=== PATIENT | male | born 2000 | race Caucasian/White ===

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

== ENCOUNTER → 2021-04-19 15:26 | Outpatient (CLI) | payer OTHER, SELFPAY ==
--- NOTE | 2021-04-19 15:29 | DI.RAD.S_ITS ---
PROCEDURE: XR ANKLE RT MIN 3V INDICATIONS: Ankle Pain TECHNIQUE: 3 views of the ankle were acquired. COMPARISON: [facility], CR, XR ANKLE LT MIN 3V, 12/30/2017, 8:37. FINDINGS: Bones: Acute oblique fracture through distal fibular shaft is seen with minimal posterior displacement at fracture site. Ankle mortise is normally aligned. No suspicious bony lesions. Soft tissues: Lateral ankle soft tissue swelling is seen. No tibiotalar joint effusion. Achilles tendon appears normal. IMPRESSION: Acute minimally displaced distal fibular shaft fracture as above. Dictated by: Philip Hudson M.D. on 04/19/2021 at 15:49 Approved by: Philip Hudson M.D. on 04/19/2021 at 15:53
== END ==
PROVIDERS: PCP Pediatrics; Referring Provider Nurse Practitioner; Visit Provider Nurse Practitioner
DX: S82.831A Other fracture of upper and lower end of right fibula, initial encounter for closed fracture (principal)
CPT/HCPCS: 73610

== ENCOUNTER → 2021-10-26 17:00 | Outpatient (CLI) | payer OTHER, SELFPAY ==
[2021-10-26 19:13] LABS: Urine N gonorrhoeae NOT DETECTED
[2021-10-26 19:31] LABS: Urine Chlamydia NOT DETECTED
== END ==
PROVIDERS: PCP Pediatrics; Visit Provider Nurse Practitioner Family
DX: Z72.51 High risk heterosexual behavior (principal)
CPT/HCPCS: 87086; 87255; 87491; 87591